=== PATIENT | male | born 1970 | race Caucasian/White ===

== ENCOUNTER → 2019-01-29 | Outpatient (REF) | payer OTHER | LOC: M LAB LCGH 16:06 | PROVIDERS: ATTEND Surgery | DX: R19.5 Other fecal abnormalities (principal) ==

== ENCOUNTER → 2022-12-29 | Outpatient (CLI) | payer SELFPAY | LOC: M PLAIMG 06:55 | PROVIDERS: ATTEND Orthopaedic Surgery | DX: M87.051 Idiopathic aseptic necrosis of right femur (principal) ==